=== PATIENT | female | born 1940 | race Caucasian/White ===

== ENCOUNTER 2017-02-17 12:51 | Day surgery (SDC) | payer MEDICARE, BC ==
--- NOTE | ~2017-02-17 | EGD ---
EGD REPORT [facility] [address] [address] NAME: ANGE CAMEJO : 44 STATUS : REG [facility] PAT#: [id number] AGE: 76 ADM/REG DATE : 02/17/17 MR#: [id number] REPORT SERV DATE: 02/17/17 DICTATED BY: THANG NIEVES DATE: 02/17/17 REPORT STATUS : Draft TRANSCRIBED BY: [facility] DATE: 02/17/17 Endoscopy Center Patient Name: Ange Camejo Date of : 1940 Attending MD: THANG NIEVES MD Procedure Date No Time: 02/17/2017 Procedure: Upper GI endoscopy Indications: Abdominal bloating, Diarrhea Referring MD: NATALIA JOHNSON MD, EVELIN HEALY Medicines: See the Anesthesia note for documentation of the administered medications Complications: Transient decrease in oxygen sats Procedure: Pre-Anesthesia Assessment: - ASA Grade Assessment: III - A patient with severe systemic disease. After obtaining informed consent, the endoscope was passed under direct vision. Throughout the procedure, the patient's blood pressure, pulse, and oxygen saturations were monitored continuously. The GIF [id number] [id number] was introduced through the mouth, and advanced to the second part of duodenum. The upper GI endoscopy was accomplished without difficulty. The patient tolerated the procedure well. Findings: The 2nd part of the duodenum was normal. Biopsies were taken with a cold forceps for histology. Deformity of duodenal bulb c/w prior ulcer disease Mild inflammation was found in the gastric antrum. Biopsies were taken with a cold forceps for histology. Portal hypertensive gastropathy was found in the gastric fundus and in the cardia (on retroflexion). A 3 cm hiatus hernia was present. Impression: - Normal 2nd part of the duodenum. Biopsied. 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 Biopsied. - Portal hypertensive gastropathy. - Hiatus hernia. Recommendation: - Patient has a contact number available for emergencies. The signs and symptoms of potential delayed complications were discussed with the patient. Return to normal activities tomorrow. Written discharge instructions were provided to the patient. EGD REPORT [address] [address] NAME: ANGE CAMEJO : [birth year] STATUS : REG [facility] PAT#: [id number] AGE: 76 ADM/REG DATE : 02/17/17 MR#: [id number] REPORT SERV DATE: 02/17/17 DICTATED BY: THANG NIEVES DATE: 02/17/17 REPORT STATUS : Draft TRANSCRIBED BY: [employer] DATE: 02/17/17 - Regular diet. - Continue present medications. - FOR YOUR BIOPSY RESULTS: Please go to [email or web address] and register to receive your results via the portal. Your biopsy results will be posted there in about 7 to 10 days. IF you do not see result in 10 days, call office. - Return to my office in 6 weeks. Procedure Code(s): --- Professional --- 22504, Esophagogastroduodenoscopy, flexible, transoral; with biopsy, single or multiple Diagnosis Code(s): --- Professional --- K29.70, Gastritis, unspecified, without bleeding K76.6, Portal hypertension K31.89, Other diseases of stomach and duodenum K44.9, Diaphragmatic hernia without obstruction or gangrene R14.0, Abdominal distension (gaseous) R19.7, Diarrhea, unspecified CPT copyright 2013 [employer]. All rights reserved. The codes documented in this report are preliminary and upon scientific recruiter review may be revised to meet current compliance requirements. Thang Nieves MD THANG NIEVES MD 02/17/2017 2:31 PM This report has been signed electronically. Number of Addenda: 0 Note Initiated On: 02/17/2017 2:15 PM Scope Withdrawal Time 0 hours 0 minutes 0 seconds [address] [place] [address]
--- NOTE | ~2017-02-17 | EGD ---
EGD REPORT [facility] [address] [address] NAME: ANGE CAMEJO : 44 STATUS : REG [facility] PAT#: [id number] AGE: 76 ADM/REG DATE : 02/17/17 MR#: [id number] REPORT SERV DATE: 02/17/17 DICTATED BY: DATE: REPORT STATUS : Draft TRANSCRIBED BY: [employer] DATE: 02/17/17 Endoscopy Center Patient Name: Ange Camejo Date of : 1940 Attending MD: THANG NIEVES MD Procedure Date No Time: 02/17/2017 Procedure: Colonoscopy Indications: Diarrhea, Last colonoscopy: 2013 Referring MD: NATALIA JOHNSON MD, EVELIN ZHANG Medicines: See the Anesthesia note for documentation of the administered medications Complications: No immediate complications. Procedure: Pre-Anesthesia Assessment: - ASA Grade Assessment: III - A patient with severe systemic disease. After I obtained informed consent, the scope was passed under direct vision. Throughout the procedure, the patient's blood pressure, pulse, and oxygen saturations were monitored continuously. The PCF [id number] was introduced through the anus and advanced to the terminal ileum, with identification of the appendiceal orifice and IC valve. The colonoscopy was performed without difficulty. The patient tolerated the procedure well. The quality of the bowel preparation was adequate. Findings: The perianal and digital rectal examinations were normal. Internal hemorrhoids were found during retroflexion and were small. Diverticula were found in the sigmoid colon, in the descending colon and in the ascending colon. A sessile polyp was found in the ascending colon. The polyp was small in size. The polyp was removed with a cold biopsy forceps. Resection and retrieval were complete. A sessile polyp was found in the ascending colon. The polyp was 10 mm in size. The polyp was removed with a hot snare. Resection and retrieval were complete. The ascending colon appeared normal. Biopsies were taken with a cold forceps for histology. A sessile polyp was found in the sigmoid colon. The polyp was small in size. The polyp was removed with a cold biopsy forceps. Resection and retrieval were complete. A sessile polyp was found in the rectum. The polyp was small in size. The polyp was removed with a cold biopsy forceps. Resection and retrieval were complete. The rectum appeared normal. Biopsies were taken with a cold forceps for EGD REPORT [address] [address] NAME: ANGE CAMEJO : [birth year] STATUS : REG [facility]#: [id number] AGE: 76 ADM/REG DATE : 02/17/17 MR#: [id number] REPORT SERV DATE: 02/17/17 DICTATED BY: DATE: REPORT STATUS : Draft TRANSCRIBED BY: [facility] DATE: 02/17/17 histology. Impression: - Internal hemorrhoids. - Diverticulosis in the sigmoid colon, in the descending colon and in the ascending colon. - One small polyp in the ascending colon. Resected and retrieved. - One 10 mm polyp in the ascending colon. Resected and retrieved. - The ascending colon is normal. Biopsied. - One small polyp in the sigmoid colon. Resected and retrieved. - One small polyp in the rectum. Resected and retrieved. - The rectum is normal. Biopsied. Recommendation: - Patient has a contact number available for emergencies. The signs and symptoms of potential delayed complications were discussed with the patient. Return to normal activities tomorrow. Written discharge instructions were provided to the patient. - Regular diet. - Continue present medications. - Repeat colonoscopy for surveillance based on pathology results. - FOR YOUR BIOPSY RESULTS: Please go to [email or web address] and register to receive your results via the portal. Your biopsy results will be posted there in about 7 to 10 days. IF you do not see result in 10 days, call office. - Restart coumadin and Lovenox today per Dr Zhang's instructions Procedure Code(s): --- Professional --- 05186, Colonoscopy, flexible, proximal to splenic flexure; with removal of tumor(s), polyp(s), or other lesion(s) by snare technique 97513, 59, Colonoscopy, flexible, proximal to splenic flexure; with biopsy, single or multiple Diagnosis Code(s): --- Professional --- K64.8, Other hemorrhoids K57.30, Diverticulosis of large intestine without perforation or abscess without bleeding K62.1, Rectal polyp D12.5, Benign neoplasm of sigmoid colon D12.2, Benign neoplasm of ascending colon R19.7, Diarrhea, unspecified EGD REPORT [facility] [address] [place] [address] NAME: ANGE CAMEJO : [birth year] STATUS : REG [facility] PAT#: [id number] AGE: 76 ADM/REG DATE : 02/17/17 MR#: [id number] REPORT SERV DATE: 02/17/17 DICTATED BY: DATE: REPORT STATUS : Draft TRANSCRIBED BY: [employer] DATE: 02/17/17 CPT copyright 2013 [employer]. All rights reserved. The codes documented in this report are preliminary and upon mechanical engineering teacher review may be revised to meet current compliance requirements. Thang Nieves MD THANG NIEVES MD 02/17/2017 2:55 PM This report has been signed electronically. Number of Addenda: 0 Note Initiated On: 02/17/2017 2:14 PM Scope Withdrawal Time 0 hours 15 minutes 3 seconds [address] [place] [address]
[~2017-02-17 12:51] MED LIST: ARIMIDEX1 PO; C25 PO; C5 PO; COUMADIN4 MG PO; COZ50 PO; DIOV80 PO; FORTAMET500 MG PO; GLUCPH PO; LEVOTHROID112 MCG PO; LEVOTHYROXIN137 MCG PO; LEVOTHYROXIN25 MCG PO; LIPITOR40 PO; LIPITOR80 MG PO; PROBIOTIC PO
[2017-02-17 13:15] LABS: INTERNATIONAL NORMAL RATI 1.2 UNITS (-); PROTIME (NOT ORD) 14.7 SEC (12.0-14.5)
== END 2017-02-17 23:59 | disposition home or self-care (01) ==
LOC: DMU 12:51
PROVIDERS: Anesthesiology; Internal Medicine Gastroenterology
PROC: 0DBN8ZX Excision of Sigmoid Colon, Via Natural or Artificial Opening Endoscopic, Diagnostic (ICD-10-PCS; 2017-02-17)
PROC: 0DB68ZX Excision of Stomach, Via Natural or Artificial Opening Endoscopic, Diagnostic (ICD-10-PCS; 2017-02-17)
PROC: 0DB98ZX Excision of Duodenum, Via Natural or Artificial Opening Endoscopic, Diagnostic (ICD-10-PCS; 2017-02-17)
PROC: 0DBK8ZX Excision of Ascending Colon, Via Natural or Artificial Opening Endoscopic, Diagnostic (ICD-10-PCS; principal; 2017-02-17 14:30)
PROC: 0DBP8ZX Excision of Rectum, Via Natural or Artificial Opening Endoscopic, Diagnostic (ICD-10-PCS; 2017-02-17 14:30)
DX: D12.2 Benign neoplasm of ascending colon (principal); K62.1 Rectal polyp; K29.50 Unspecified chronic gastritis without bleeding; K64.8 Other hemorrhoids; K57.30 Diverticulosis of large intestine without perforation or abscess without bleeding; K21.9 Gastro-esophageal reflux disease without esophagitis; K76.6 Portal hypertension; E11.9 Type 2 diabetes mellitus without complications; K44.9 Diaphragmatic hernia without obstruction or gangrene; I10 Essential (primary) hypertension; D64.9 Anemia, unspecified; E03.9 Hypothyroidism, unspecified; Z86.718 Personal history of other venous thrombosis and embolism; Z86.711 Personal history of pulmonary embolism; Z88.1 Allergy status to other antibiotic agents; Z88.6 Allergy status to analgesic agent; Z90.49 Acquired absence of other specified parts of digestive tract; Z90.710 Acquired absence of both cervix and uterus; Z98.890 Other specified postprocedural states
CPT/HCPCS: 82962; 85610; 88305; 94640; A9270-GY